=== PATIENT | male | born 1990 | race Caucasian/White ===

== ENCOUNTER 2023-11-26 15:44 | Emergency (ER) | payer OTHER ==
[~2023-11-26] VITALS: Ht 182.9 cm; Wt 99.8 kg
[2023-11-26] MEDS ORDERED: KETOROLAC TROMETHAMINE 15 MG/ML VIAL ONE (17:04)
[2023-11-26] MEDS: KETOROLAC TROMETHAMINE 15 MG/ML VIAL IV ONE (17:17)
[2023-11-26] MEDS ORDERED: CT SWABBABLE VALVE TRANS SET 1 EA INFUS.SET MC ONE (17:34)
[2023-11-26] MEDS ORDERED: IOHEXOL-300 100 ML VIAL IV ONE (17:34)
[2023-11-26] MEDS ORDERED: AMOX/CLAVULANATE 875 MG TABLET PO ONE (19:00)
[2023-11-26] MEDS ORDERED: AMOX500C2 PO (19:10)
[2023-11-26] MEDS ORDERED: ACET-2605 PO (19:10)
[2023-11-26] MEDS ORDERED: NAPR-1164 PO (19:10)
[2023-11-26] MEDS ORDERED: HYDR-4209 PO (19:10)
[2023-11-26] MEDS: PENICILLIN V POTASSIUM 500 MG TABLET PO ONE (19:25)
[2023-11-26 19:32] VITALS: BP 121/68; TEMP 98; O2SAT 97
== END 2023-11-26 19:32 | disposition home or self-care (01) ==
LOC: ER 15:50
DX: K04.7 Periapical abscess without sinus (principal); Z91.040 Latex allergy status
CPT/HCPCS: 99285; 96374; 70487; Q9967; J1885